=== PATIENT | female | born 1950 | race Caucasian/White ===

== ENCOUNTER 2021-07-19 06:55 | Day surgery (SDC) | payer MEDICARE, SELFPAY ==
[2021-05-16 08:07] VITALS: BP 112/58; BMI 29.6
[2021-07-14 10:40] VITALS: BMI 29.5
--- NOTE | 2021-07-18 08:08 | HO.ANESPROP2 ---
Documented by User: Destini Humphrey NP 07/18/21 11:44 HPI - Anesthesia Eval Consult details Narrative: 71yo F for Colonoscopy with antibiotics plavix/asa s/p AVR 01/2021 PMFSH Active Problems Active Problems: All Active Problems (Updated 07/14/21 @ 10:34 by Elizabet Adams RN) Upper respiratory tract infection (Acute) Past Medical History Medical History (Updated 07/14/21 @ 10:34 by Elizabet Adams RN) Aortic valve stenosis Diabetes Endometrial cancer HTN (hypertension) Hypothyroid Surgical History Surgical History (Updated 07/14/21 @ 10:34 by Elizabet Adams RN) H/O colonoscopy History of History of total abdominal hysterectomy Hx of aortic valve replacement Hx of hand surgery Social History Social History Patient Tobacco Use Status: Never used Tobacco Advance Directives: No Advance Directives Information Provided: Yes Advance Directives on File: No Meds Allergies Allergy/AdvReac Type Severity Reaction Status Date / Time Seasonal Allergies Allergy Intermediate hayfever Verified 07/14/21 10:39 symptoms Sulfa (Sulfonamide Allergy Unknown Unknown Verified 07/19/21 07:29 Antibiotics) [SULFA (SULFONAMIDE ANTIBIOTICS)] Home Medications Medication Instructions Recorded Confirmed Last Taken Type aspirin 81 mg tablet,delayed 81 mg PO DAILY 07/14/21 07/14/21 Unknown History release atorvastatin 40 mg tablet 1 tab PO DAILY 07/14/21 07/14/21 Unknown History clopidogrel 75 mg tablet 1 tab PO DAILY 07/14/21 07/14/21 07/15/21 History fexofenadine 180 mg tablet 180 mg PO DAILY 07/14/21 07/14/21 Unknown History levothyroxine 75 mcg tablet 75 mcg PO DAILY 07/14/21 07/19/21 07/19/21 History Exam Exam Date and Time: July 18, 2021 0808 Height,Weight and Vital Signs: Height 5 ft 4 in Weight 78.018 kg Narrative Narrative: EKG 03/2021 NSR @65, nonspecific ST-T wave abnormalities ECHO 03/2021 LV normal in size Mild basal septal hypertrophy LV wall thickness is mildly increased LVEF 65-75% No RWMA Grade 2 DD with elevated LA pressure Bioprosthetic valve well seated in aortic position. No central valvular leak. No perivalvular leak. Peak velocity and mean gradient milding elevated in setting of increased stroke-volume. No evidence of significant prostheitc aortic stenosis Mild to mod mitral annular calc Mitral valve leaflets appear mild to moderately calcified. No significant mitral stenosis or regurg Trace circumferential pericardial effusion Pre-TAVR cath showed mild disease Assessment and Plan Assessment Anesthesia Assessment: Chart Reviewed Documented by User: Darby Lucas MD 07/19/21 08:29 [facility] Past Medical History Medical History (Updated 07/14/21 @ 10:34 by Elizabet Adams RN) Aortic valve stenosis Diabetes Endometrial cancer HTN (hypertension) Hypothyroid Family History Family history of problems with anesthesia: No Surgical History Surgical History (Updated 07/14/21 @ 10:34 by Elizabet Adams RN) H/O colonoscopy History of History of total abdominal hysterectomy Hx of aortic valve replacement Hx of hand surgery History of Problems with Anesthesia: No Social History Social History Patient Tobacco Use Status: Never used Tobacco Advance Directives: No Advance Directives Information Provided: Yes Advance Directives on File: No Meds Allergies Allergy/AdvReac Type Severity Reaction Status Date / Time Seasonal Allergies Allergy Intermediate hayfever Verified 07/14/21 10:39 symptoms Sulfa (Sulfonamide Allergy Unknown Unknown Verified 07/19/21 07:29 Antibiotics) [SULFA (SULFONAMIDE ANTIBIOTICS)] Home Medications Medication Instructions Recorded Confirmed Last Taken Type aspirin 81 mg tablet,delayed 81 mg PO DAILY 07/14/21 07/14/21 Unknown History release atorvastatin 40 mg tablet 1 tab PO DAILY 07/14/21 07/14/21 Unknown History clopidogrel 75 mg tablet 1 tab PO DAILY 07/14/21 07/14/21 07/15/21 History fexofenadine 180 mg tablet 180 mg PO DAILY 07/14/21 07/14/21 Unknown History levothyroxine 75 mcg tablet 75 mcg PO DAILY 07/14/21 07/19/21 07/19/21 History Exam Airway Mallampati Class: II (Couple caps) TM Dist: >3cm Neck ROM: Full Heart: rrr Lungs: cta Assessment and Plan Assessment Anesthesia Assessment: Anesthesia Plan Discussed and Chart Reviewed Final Anesthetic Review Family History of Problems with Anesthesia: No History of Problems with Anesthesia: No NPO: Yes ASA Class: II Final Preanesthetic Review: No Changes in Pt Med Stat, Meds/Allgs Chart Reviewed and Consent Obtained/Reviewed Patient Risk: Intermediate Procedure Risk: Intermediate Anesthetic Plan Anesthetic Plan: MAC: Disposition: Standard PACU
[2021-07-19 07:15] VITALS: BP 164/78; PULSE 89; RESP 18; TEMP 36.2; O2SAT 96
[2021-07-19] MEDS: Ampicillin Sodium 2 GM in 0.9 % Sodium Chloride 100 ML IV (07:36)
[2021-07-19] MEDS: Lactated Ringers 1,000 ML 100 ML IVCONT (07:36)
[2021-07-19] MEDS: Gentamicin Sulfate/NaCl 80 MG/100 ML PIGGYBACK 100 MG IV (07:54)
[2021-07-19 09:20] VITALS: BP 102/47; PULSE 77; RESP 16; TEMP 36.2; O2SAT 96
--- NOTE | 2021-07-19 09:24 | P.BOP_ITS ---
Brief Operative Note Date of Service: 07/19/21 Pre-op diagnosis: Screening Post-op diagnosis: other (Diverticulosis) Procedure: Colonoscopy to the cecum and TI Surgeon: Jorge Rose Anesthesia: MAC Was an Account Manager Trainee used for this Procedure?: No Estimated blood loss (mL): 0 Pathology: none sent Condition: stable Disposition: PACU
[2021-07-19 09:35] VITALS: BP 115/51; PULSE 78; RESP 16; TEMP 36.2; O2SAT 97
--- NOTE | 2021-07-19 10:45 | OP_ITS ---
SURGEON: Jorge Rose MD INDICATIONS: The patient presents for evaluation of personal history of tubular adenoma of the colon, family history of colon cancer, and colorectal cancer screening. Full consent was obtained from her for the procedure, including risks of bleeding and perforation. PREOPERATIVE DIAGNOSIS: POSTOPERATIVE DIAGNOSIS: PROCEDURE PERFORMED: ESTIMATED BLOOD LOSS: COMPLICATIONS: ANESTHESIA: Monitored anesthesia care. ASSISTANTS: SPECIMENS: PROCEDURE: Colonoscopy to the cecum and terminal ileum. PREOPERATIVE DIAGNOSES: Personal history of tubular adenoma of the colon, family history of colon cancer, colorectal cancer screening. POSTOPERATIVE DIAGNOSES: Personal history of tubular adenoma of the colon, family history of colon cancer, colorectal cancer screening, mild diverticulosis, internal hemorrhoids. DESCRIPTION OF PROCEDURE: The patient was placed in the left lateral decubitus position. The digital rectal exam revealed no abnormalities. The Olympus video pediatric colonoscope was entered into the rectum and advanced easily to the cecum. Once in the cecum, I did identify normal-appearing cecal pouch with appendiceal orifice and normal-appearing ileocecal valve. The terminal ileum was cannulated and appeared normal. Scope was withdrawn back in the colon. The entire cecum and ileocecal valve appeared normal. The scope was slowly withdrawn assessing all mucosal surfaces carefully. Preparation was excellent. I did not visualize any sign of polyps, colitis, nor angiodysplasia. There was a mild amount of sigmoid diverticulosis. In the rectum, scope was retroflexed visualizing internal hemorrhoids, but no other pathology. The rectal mucosa appeared normal. The scope was straightened and withdrawn from the patient. She tolerated the procedure well and was returned to the recovery area in stable condition. IMPRESSION: 1. Diverticulosis. 2. Internal hemorrhoids. PLAN: Given her family history and previous history of tubular adenoma, I would recommend a followup colonoscopy in 5 years. She will otherwise see me on a p.r.n. basis. She was advised to resume her aspirin and clopidogrel today. She did receive preprocedure antibiotics and was given a prescription for amoxicillin to take later today in regard to her previous aortic valve replacement. MD JACY Figueroa/CHARLY / [id number]
== END 2021-07-19 10:09 | disposition home or self-care (01) ==
PROVIDERS: PCP Internal Medicine; Visit Provider Internal Medicine
PROC: 0DJD8ZZ Inspection of Lower Intestinal Tract, Via Natural or Artificial Opening Endoscopic (ICD-10-PCS; CPT 45378; principal; 2021-07-19 08:20)
DX: Z12.11 Encounter for screening for malignant neoplasm of colon (principal); Z86.010 Personal history of colon polyps; Z80.0 Family history of malignant neoplasm of digestive organs; K57.30 Diverticulosis of large intestine without perforation or abscess without bleeding; K64.8 Other hemorrhoids; Z95.2 Presence of prosthetic heart valve; E11.9 Type 2 diabetes mellitus without complications; I10 Essential (primary) hypertension; E03.9 Hypothyroidism, unspecified; Z79.01 Long term (current) use of anticoagulants; Z79.82 Long term (current) use of aspirin; Z85.42 Personal history of malignant neoplasm of other parts of uterus
CPT/HCPCS: G0105; J0290; J1580

== ENCOUNTER 2025-04-28 16:59 | Emergency (ER) | payer MEDICARE, SELFPAY ==
[2021-08-03 08:21] VITALS: BP 128/64; BP 138/70; BMI 30.6
--- OUTSIDE RECORDS SUMMARY | 2025-04-24 13:20 | XMS_ITS | Encounter Summary ---
Author Organization [facility] Address [address] [place] [address] Phone Care Team Providers Care Flight Attendant Name Role Phone Erwin Simon MD Primary Care Provider [phone] Reason for Visit * Reason Comments Back Pain LBP radiating down h er left buttocks to her toes x 3 days. No trauma. Encounter Details Date Type Department Care Team (Late st Contact Info) Description 04/24/2025 1:20 PM EST Office Visit [facility] at [address] [address] Rufina Collado, MICHAELLE [address] [place] [id number] [email or web address] Acute left-sided low back pain with left-sided sciatica (Primary Dx); Primary hypertension Social History Tobacco Use Types Packs/Day Years Used Date Smoking Tobacco: Never Smokeless Tobacco: Never Tobacco Cessation:Counseling Given: Not Answered Education Answer Date Recorded Are you interested in more education? Not on jaycee e 08/25/2022 Are you concerned about learning? Not on file 08/25/2022 No 08/25/2022 No 08/25/2022 Digital Access Answer Date Recorded No 09/23/2022 No 09/23/2022 Reliable internet access at home? Not on file 09/23/2022 Device with a working camera? Not on file Comments No Sex and Gender Information Value Date Recorded Sex Assigned at Not on file Legal Sex Female 8:48 AM EDT Gender Identity Not on file Sexual Orientation Not on file documented as of this encounter Last Filed Vital Signs Vital Sign Reading Time Taken Comments Blood Pressure 156/68 04/24/2025 1:58 PM EST Pulse 74 04/24/2025 1:31 PM EST Temperature 36.6 C (97.8 F) 04/24/2025 1:31 PM EST Respiratory Rate 16 04/24/2025 1:31 PM EST Oxygen Saturation 98% 04/24/2025 1:31 PM EST Inhaled Oxygen Concentration - - Weight 73.5 kg (162 lb) 04/24/2025 1:31 PM EST Height - - Body Mass Index 28.7 08/04/2021 9:11 AM EDT documented in this encounter Patient Instructions * Patient Instructions* Rufina Collado PA-C - 04/24/2025 1:20 PM EST Take the Medrol pills as early in the day as possible. Take all the pills for the day at once. Do not take ibuprofen or naproxen with these, but you can take acetaminophen 1000mg up to 4 times a day for the pain. Take the muscle relaxer as prescribed. Do not mix with alcohol or drive while taking this as it maymake your drowsy. Rest the back. Apply heat to the back for 20 minutes 3-4 x a day. Gentle stretching. Use over the counter pain patches with lidocaine( don't apply heat directly over). Contact your PCP for an appointment as you may need a referral to PT. Go to the ER for development of urinary or bowel incontinence, numbness in the groin area or loss of control of a foot or leg. Please follow up with your PCP to discuss blood pressure * Attachments The following attachments cannot be sent through Care Everywhere. * Sciatica ([place]) documented in this encounter Progress Notes * Rufina Collado PA-C - 04/24/2025 1:20 PM EST Images from the original note were not included. Subjective: Patient ID: Meghana Amato is a 74 y.o. female. 74-year-old female here with lower left back pain for the past 4 days radiating down into her buttocks and her left leg. She has not had any numbness, tingling in her leg, no numbness in her buttocksand no change to bowel or bladder. She has tried acetaminophen, ibuprofen, heating pad, IcyHot and nothing has helped. Back Pain Pertinent negatives include no chest pain, fever, numbness or weakness. Review of Systems Constitutional: Negative for chills and fever. Cardiovascular: Negative for chest pain. Neurological: Negative for weakness and numbness. Hematological: Does not bruise/bleed easily. Musculoskeletal: Positive for back pain. Negative for myalgias. Vitals: 04/24/25 1331 04/24/25 1358 BP: (!) 168/83 (!) 156/68 BP Location: Left arm Left arm Patient Position: Sitting Sitting Cuff Size: Medium Large Pulse: 74 Resp: 16 Temp: 36.6 ??C (97.8 ??F) TempSrc: Temporal SpO2: 98% Weight: 73.5 kg (162 lb) Objective: Physical Exam Constitutional: General: She is not in acute distress. Musculoskeletal: Lumbar back: Spasms and tenderness (L sciatic notch) present. No swelling, deformity, signs of trauma, lacerations or bony tenderness. Normal range of motion. Positive left straight leg raise test. Negative right straight leg raise test. Neurological: Mental Status: She is alert. No results found for this visit on 04/24/25. Procedure: Procedures Assessment/Plan: Diagnosis Plan 1. Acute left-sided low back pain with left-sided sciatica 2. Primary hypertension Assessment and Plan: No red flag symptoms currently. Positive straight leg raise on L consistent with sciatica Discussedsymptomatic care, steroids with side effects and warnings, and muscle relaxer prescribed. DiscussedER precautions. Aware her BP is high, likely due to pain at this time. Will f/u with PCP documented in this encounter Plan of Treatment Not on file documented as of this encounter Visit Diagnoses Diagnosis Acute left-sided low back pain with left-sided sciatica- Primary Primary hypertension Unspecified essential hypertension documented in this encounter Care Teams Flight Attendant Relationship Specialty Start Date End Date Erwin Simon MD [address] [place] [id number] PCP - General Internal Medicine 08/04/21 documented as of this encounter Additional Source Comments The information contained in this document represents components of the legal health record. It is not the complete legal health record.[facility]
--- NOTE | ~2025-04-28 | CT_ITS ---
CLINICAL HISTORY: L sided pain, currently tx for breast CA Exam: Unenhanced CT lumbar spine with multiplanar reformats. Comparison: None. Findings: Osseous structures: There is mild 5 mm grade 1 anterolisthesis L4 on L5. Remaining vertebral body heights and alignment are maintained. No destructive osseous lesions. Diffuse moderate vertebral body spurring and mild disc space narrowing is more significant L1-L4, findings compatible with diffuse degenerative disc disease. Bilateral facet arthropathy is more significant L4-S1. Soft tissues: Disc bulging at L3-4 (4; 226) may result in very mild central canal stenoses. Anterolisthesis with disc bulging and facet arthropathy as well as ligamentum flavum hypertrophy at L4-5 result in likely at least moderate central canal stenoses (4; 287). No other significant compromise of the thecal sac or spinal canal. Visualized visceral structures reveal no acute abnormalities. Impression: 1. Lumbar degenerative changes, most significant at L4-5 level as described above. This document has been electronically signed by: Lincoln Dennison MD on 04/28/2025 19:22:25
[2025-04-28 17:04] VITALS: BP 205/88; PULSE 68; RESP 18; TEMP 36.6; O2SAT 98; BMI 29.2
--- NOTE | 2025-04-28 17:06 | ED_ITS ---
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 She denies fall or other trauma. Reports pain began around 5 days ago. She was seen at urgent care and started on prednisone and a muscle relaxer. Reports that the only relief was the 1st day that she took the high dose of prednisone (60 mg). Denies any additional pain relief since. Reports that she feels her left leg is weaker than the right. Denies any saddle anesthesia or bowel or bladder incontinence. Denies fevers. MD elicited complaint: back pain Related Data Home Medications ?Medication ?Instructions ?Recorded ?Confirmed aspirin 81 mg tablet,delayed 81 mg PO DAILY 07/14/21 0 07/14/21 release atorvastatin 40 mg tablet 1 tab PO DAILY 07/14/2106/27 clopidogrel 75 mg tablet 1 tab PO DAILY 07/14/2106/27 fexofenadine 180 mg tablet 180 mg PO DAILY 07/14/21 levothyroxine 75 mcg tablet 75 mcg PO DAILY 07/14/21 0 07/19/21 Previous Rx's ?Medication ?Instructions ?Recorded azithromycin 250 mg tablet See Rx Instructions PO .COM PLEX #6 01/20/21 (Zithromax) tabs diazepam 5 mg tablet (Valium) 5 mg PO BID PRN muscle s pasm #10 04/28/25 tabs gabapentin 300 mg capsule 300 mg PO TID #30 caps 04/28 prednisone 20 mg tablet 60 mg (3 x 20 mg) PO DAILY 5 days 04/28/25 #15 tabs Allergies Allergy/AdvReac Type Severity Reaction Status Date / Time Seasonal Allergies Allergy Intermediate hayfever Verified 04/28/25 17:08 symptoms Sulfa (Sulfonamide Allergy Unknown Unknown Verified 04/28/25 17:08 Antibiotics) (SULFA (SULFONAMIDE ANTIBIOTICS)) Review of Systems Review of Systems: as per hpi Yes all other systems are reviewed and are negative Constitutional: Constitutional: Reports as per HPI [facility] Past Medical History Medical History (Updated 04/28/25 @ 20:50 by Melissa Knapp NP) Aortic valve stenosis Endometrial cancer Hypothyroid Diabetes HTN (hypertension) Surgical History (Updated 07/14/21 @ 10:34 by Elizabet Adams RN) Hx of hand surgery History of History of total abdominal hysterectomy H/O colonoscopy Hx of aortic valve replacement Social History Social History Patient Tobacco Use Status: Never used Tobacco Smoked in Last 30 Days: No Use of substances other than those prescribed or required for medical reasons: No Advance Directives: Yes Advance Directives Information Provided: No Advance Directives on File: No Physical Exam Vital Signs: Vital Signs: Last Vital Signs Temp 97.4 F 04/28/25 23:00 Pulse 77 04/28/25 23:00 Resp 16 04/28/25 23:00 BP 229/94 H 04/28/25 23:00 Pulse Ox 97 04/28/25 23:00 O2 Del Method Room Air 04/28/25 23:00 BMI result Body Mass Index 29.2 Vital signs have been reviewed and appear to be correct. Blood pressure hypertensive. Heart rate normal. Respiratory rate normal. Temperature normal. Oxygen saturation normal. Const: General: cooperative, healthy appearing and no acute distress Orientation/consciousness: oriented to person, oriented to place, oriented to time and patient oriented x3 Limitations: no limitations HEENT: Head: Yes normocephalic and Yes atraumatic Ears: external ears normal General nose exam: Normal external nose present Face and sinus: Yes face symmetric Mouth: oropharynx normal and moist mucous membranes Throat: Yes uvula midline Eyes: Pupils: Equal, round and reactive pupils present Neck: Neck: Yes normal visual inspection, Yes no meningeal signs and Yes supple Resp: Effort & Inspection: normal respiratory effort and able to speak in complete sentences Auscultation: clear to auscultation bilaterally Cardio: Rate: regular rate Rhythm: regular rhythm Heart sounds: S1 normal heart sound present and S2 normal heart sound present GI: Palpation (GI): Soft to palpation and nontender Auscultation: normoactive bowel sounds : General: Yes no CVA tenderness Back/Spine/Pelvis: Back: no CVA tenderness Thoracic/Lumbar Spine: thoracic and lumbar spine normal to inspection, thoraco-lumbar ROM normal, straight leg raise negative bilaterally, pain with thoraco-lumbar ROM, No thoracic spinal tenderness and lumbar spinal tenderness at L4 and at L5 Skin: General skin exam: elasticity normal and turgor normal Neuro: General: oriented to person, oriented to place, oriented to time, patient oriented x3, gait normal, tone normal, moves all extremities, Normal light touch and pain sensation, no meningeal signs, no focal motor deficits, CN's II-XI intact bilaterally and deep tendon reflexes 2+ bilaterally Cranial nerves: Yes Equal, round and reactive pupils present Cognition (Neuro): normal cognition Motor exam (neuro): 5/5 motor strength present throughout, Normal motor muscle tone present throughout and Motor abnormalities not present Sensory Exam: Normal double simultaneous stimulation for sensation Extrem: General: Yes full ROM, Yes no pedal edema and Yes no calf tenderness Psych: Mental Status: mental status grossly normal Affect: normal affect Thought process: Normal thought process present Course Course Course Narrative: This is a Rapid Medical Exam performed in triage by Amalia Euceda PA-C. Full HPI, ROS and PE to be performed by primary ED provider. 74 yo F w/pmhx DM, hypothyroid, HTN, presenting to the ED c/o L sided low back pain/buttock pain radiating down left lower extremity x5 days. Has been taking muscle relaxer and prednisone from urgent Care without relief. Denies known injury, trauma, fall, numbness/tingling. Reports associated weakness. Denies urinary symptoms PE: HTNsive, no midline spinous ttp, no visible rash to whats seen in triage. Plan: Pain control - full eval Reevaluation(s) Reevaluation #1: 11:25 PM 04/28/2025 (Paulina ALEXANDRE): The patient was signed out to this provider at shift change. The patient is a 74-year-old female who presents to the ED for evaluation of left-sided low back pain radiating to the left leg for the past 5 days without associated trauma. The patient was treated with Medrol Dosepak and muscle relaxers at a urgent care visit 5 days ago when the pain began. Patient reports medications initially helped but only for 1 day and then symptoms returned and did not respond similarly to the above-mentioned medications. The patient reports she has also been attempting Tylenol regularly, and OTC lidocai ne patches without effect. The patient is unable to take any NSAIDs due to anticoagulation for aortic heart valve replacement. The patient wishes to avoid any narcotic medications. The patient has had no associated systemic illness. Per sign-out there are no symptoms or concern for cauda equina. Patient was sent for CT of the lumbar spine to evaluate for pathologic fracture due to a history of ductal carcinoma. The patient's CT shows no evidence of fracture or other acute pathology, there is significant degenerative disc disease specifically of L4 through L5. The patient was treated with Solu-Medrol and Valium, and signed out to this provider pending re-evaluation. Upon initial reassessment the patient reported no significant improvement in symptoms. Patient was treated additionally with gabapentin. Upon repeat evaluation the patient reports some moderate improvement in symptoms. The patient will be discharged with a course of gabapentin, Valium, and prednisone. Patient has been educated on need for outpatient follow up with PCP for physical therapy and consideration of higher level pain control such as spinal injections. After discussion with the patient and her , the patient's prescriptions will be sent to [facility] in [place] as the patient's pharmacy is likely to be closed tomorrow due to the new 's holiday. Of note the patient's blood pre ssure has been elevated since arrival in the ED, patient does have a history of hypertension and takes her medications in the morning, denies any recent missed doses or changes to her medication. Patient's pain may be exacerbating hypertension, however patient is currently having no chest pain, headache, focal neurological deficit or other symptoms concerning for hypertensive crisis. Patient educated to take her medication in the morning and monitor blood pressure, instructed to return with any headache, chest pain, vision changes, or other concerning symptoms. Medications Administered Discontinued Medications Generic Name Dose Route Start Last Admin Trade Name Lukeq PRN Reason Stop Dose Admin Diazepam 2 mg 04/28/25 20:15 04/28/25 21:08 Diazepam 2 Mg Tablet PO 04/28/25 20:16 2 mg ONCE ONE Administration Gabapentin 300 mg 04/28/25 22:05 04/28/25 22:31 Gabapentin 300 Mg Capsule PO 04/28/25 22:06 300 mg ONCE ONE Administration Methylprednisolone Sodium Succinate 60 mg 04/28/25 20:15 12/31/25 21:08 Methylprednisolone Sod Succ 125 Mg/2 Ml Vial IM 04/28/25 20:16 60 mg ONCE ONE Administration Morphine Sulfate 4 mg 04/28/25 18:43 04/28/25 19:17 Morphine Sulfate 4 Mg/Ml Cartridge IM 04/28/25 18:44 4 mg ONCE ONE Administration Protocol Medical Decision Making Medical Decision Making [facility] Narrative: Patient is a 74-year-old female with past medical history of invasive ductal carcinoma of right breast currently on anastrozole, 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 On exam patient is awake, A+Ox3, VS WNL, afebrile, normal neurological exam without focal deficits, physical exam findings as above. Given reported symptoms and physical exam findings, initial differential includes but is not limited to initial differential includes lumbar radiculopathy, lumbar strain, degenerative disc disease, disc herniation, spinal stenosis, spondylosis. Given breast and history of endometrial cancer, concern for malignancy/mass. Unlikely SEA, cauda equina/cord compression. CT lumbar spine notable for . My interpretation is in agreement with the radiologist's interpretation. Patient medicated with IM morphine and denies any relief of pain for this, also requesting no additional doses of morphine. Will try IM Solu-Medrol and p.o. Valium next. Patient signed out to BALDOMERO Daugherty pending reassessment after solu-medrol and valium. Differential Diagnosis Differential Diagnoses: The differential diagnosis associated with the presentation includes as per [facility] Admission/Observation Consideration of admission/observation: Escalation of care including admission/observation considered Independent Interpretation I performed an independent interpretation of an: CT Scan Interpretation: CT lumbar spine notable for degenerative changes, primarily at L4-L5. Radiology Impression Discussion of test interpretation with radiology: I have reviewed the radiologist's reading. Radiologist Impression: Exam: Unenhanced CT lumbar spine with multiplanar reformats. Comparison: None. Findings: Osseous structures: There is mild 5 mm grade 1 anterolisthesis L4 on L5. Remaining vertebral body heights and alignment are maintained. No destructive osseous lesions. Diffuse moderate vertebral body spurring and mild disc space narrowing is more significant L1-L4, findings compatible with diffuse degenerative disc disease. Bilateral facet arthropathy is more significant L4-S1. Soft tissues: Disc bulging at L3-4 (4; 226) may result in very mild central canal stenoses. Anterolisthesis with disc bulging and facet arthropathy as well as ligamentum flavum hypertrophy at L4-5 result in likely at least moderate central canal stenoses (4; 287). No other significant compromise of the thecal sac or spinal canal. Visualized visceral structures reveal no acute abnormalities. Impression: 1. Lumbar degenerative changes, most significant at L4-5 level as described above. External Record Review External record reviewed: Inpatient record, Office record and Outpatient record Discharge Plan Discharge Clinical Impression: Lumbar radiculopathy Patient Disposition: Home, Self-Care Instructions: Lumbar Radiculopathy (ED) Additional Instructions: Your Diagnosis You have been diagnosed with lumbar radiculopathy, a condition where a nerve in your lower back is irritated or compressed. This causes pain that may radiate do wn your leg, along with possible numbness, tingling, or weakness. The good news is that most people with this condition improve over time with conservative treatment. What to Expect Most patients with lumbar radiculopathy see improvement within 6 weeks. About one-third of patients notice improvement within 2 weeks, and this percentage increases significantly with time. Your symptoms should gradually decrease as the nerve irritation resolves. Activity Guidelines Stay Active: It is important to avoid bed rest and continue with your normal activities as much as possible. Bed rest does not speed recovery and may actually slow it down. Continue with usual activities, including work, as tolerated. Modify Activities: If certain activities significantly increase your symptoms, you may need to temporarily modify them. This might include: * Avoiding heavy lifting * Avoiding prolonged sitting or standing in one position * Adjusting your workstation if needed * Taking breaks to change positions before experiencing excessive stiffness Exercise: Begin a progressive walking program as soon as possible. Aim to gradually increase your walking time or distance. Your healthcare provider may also recommend specific stretching and strengthening exercises tailored to your condition. Pain Management Medications: Take all medications as prescribed according to directions provided. Heat Therapy: Applying heat to your lower back may provide some relief. When to Seek Immediate Medical Attention Go to the emergency department or call 911 if you develop any of these warning signs: * Loss of bladder or bowel control?(inability to hold urine or stool) * Numbness in the groin or buttocks area?(saddle anesthesia) * Severe or rapidly worsening leg weakness?(difficulty walking or standing) * New inability to urinate * Fever with back pain * Severe pain that is not controlled with medication Follow-Up Care * Schedule a follow-up appointment with your primary healthcare provider * If your symptoms do not improve within 6 weeks, or if they worsen, contact your primary healthcare provider * Physical therapy may be recommended if your recovery is slow or if you have risk factors for persistent pain Additional Tips * Maintain a positive outlook?remember that most people recover without surgery * Avoid smoking, as it is associated with worse back pain outcomes * Gradually return to your normal activities as your symptoms improve * Do not be alarmed by modest increases in pain with activity?this does not mean you are causing damage Prescriptions: New prednisone 20 mg tablet 60 mg PO DAILY 5 Days Qty: 15 0RF diazepam [Valium] 5 mg tablet 5 mg PO BID PRN (Reason: muscle spasm) Qty: 10 0RF gabapentin 300 mg capsule 300 mg PO TID Qty: 30 0RF No Action atorvastatin 40 mg tablet 1 tab PO DAILY clopidogrel 75 mg tablet 1 tab PO DAILY fexofenadine 180 mg Tablet 180 mg PO DAILY aspirin 81 mg Tablet,Delayed Release (Dr/Ec) 81 mg PO DAILY levothyroxine 75 mcg Tablet 75 mcg PO DAILY azithromycin [Zithromax] 250 mg tablet See Rx Instructions PO .COMPLEX Qty: 6 0RF Rx Instructions: take 500 mg today (day 1), then 250 mg for 4 days (days 2-5) PO Referrals: rEwin Simon MD [Primary Care Provider, Internal Medicine] Clinical Impression: Lumbar radiculopathy Print Language: Sammarinese
--- OUTSIDE RECORDS SUMMARY | 2025-04-28 18:17 | XMS_ITS | Encounter Summary ---
Author Organization [facility] Address [address] [place] [id number] Phone Care Team Providers Care Site Project Manager Name Role Phone Erwin Simon MD Primary Care Provider [phone]- [phone] Reason for Visit * Reason Comments Med Change Request Encounter Details Date Type Department Care Team (Late st Contact Info) Description 04/24/2025 Refill [facility] Urgent Care at [address] [address] Rufina Collado PA-C [address] [place] [address] [phone] [email or web address] Med Change Request Social History Tobacco Use Types Packs/Day Years Used Date Smoking Tobacco: Never Smokeless Tobacco: Never Education Answer Date Recorded Are you interested [...] on file documented as of this encounter Plan of Treatment Not on file documented as of this encounter Visit Diagnoses Not on filedocumented in this encounter Care Teams Site Project Manager Relationship Specialty Start Date End Date Erwin Simon MD [address], [place] [id number] (work) PCP - General Internal Medicine 08/04/21 documented as of this encounter Additional Source Comments The information contained in this document represents components of the legal health record. It is not the complete legal health record.[facility]
--- OUTSIDE RECORDS SUMMARY | 2025-04-28 18:17 | XMS_ITS | Clinical Summary ---
Author Organization [facility] Address [address] [place] [address] Phone Care Team Providers Care Information Systems Security Officer Name Role Phone Erwin Simon MD Primary Care Provider [phone]- [phone] Allergies Active Allergy Reactions Criticality Noted Date Comments Alendronate GI Upset 08/04/2021 Risedronate Joint Pain Low 08/04/2021 Sulfamethoxazole Rash Low 08/04/2021 Medications atorvastatin (LIPITOR) 40 MG tablet 07/21/19 22 Active clopidogrel (PLAVIX) 75 mg tablet 06/07/19 22 Active quinapriL (ACCUPRIL) 40 MG tablet 07/21/19 22 Active levothyroxine (SYNTHROID, LEVOTHROID) 75 MCG tablet Take 75 mcg by mouth. 03/14/20 21 Active fexofenadine (SYDNEY) 180 MG tablet Take 180 mg by mouth. 02/21/20 21 Active amoxicillin (AMOXIL) 500 MG capsule Only when pt needs dental work done 07/20/19 22 Active aspirin 81 MG EC tablet Take 81 mg by mouth. Active blood sugar diagnostic Strp strips See Instruction s, # 1 each, Maintenance , use to check glucose once daily for dx diabetes mellitus type 2 (E11.9), 03/24/24 8:15:00 AM EST, Supply, 159.7, cm, 03/23/24 13:12:00 EST, Height, 77.6, kg, 12/11/23 12:54:00 EDT, Dry Weight 03/24/20 24 Active dzttwbsv-wgn-wygh- FA-vit K-lut (CENTRUM SILVER WOMEN) 8 mg iron-400 mcg-50 mcg Tab as directed Orally Active lutein 6 mg Tab Lutein Acti ve vitamin C-biotin 50 mg -1,250 mcg Chew Vitamin B 12 Active metFORMIN (GLUCOPHAGE-XR) 500 MG 24 hr tablet Take 1 tablet by mouth. 03/03/20 25 Active ascorbic acid, vitamin C, (ASCORBIC ACID) 250 mg Chew Vitamin C Active amLODIPine (NORVASC) 5 MG tablet Take 1 tablet by mouth. 11/20/19 25 Active anastrozole (ARIMIDEX) 1 mg tablet Take 1 tablet by mouth. 11/19/19 25 Active vitamin D3-vitamin K2 25 mcg (1,000 unit)-90 mcg ODT disintegrating tablet Vitamin D3 Active lisinopril (PRINIVIL,ZESTRIL) 40 MG tablet Take 1 tablet by mouth. 01/07/20 25 Active b complex vitamins capsule Take 1 capsule by mouth daily. Active tiZANidine (ZANAFLEX) 4 MG tablet Take 1 tablet (4 mg total) by mouth every 6 (six) hours as needed (for muscle spasm - will make you drowsy). 16 tablet 04/24/20 25 025 Active methylPREDNISolone (MEDROL DOSEPACK) 4 mg tablet TAKE ALL THE PILLS FOR THE DAY EARLY IN THE MORNING POSSIBLE. 21 tablet 04/24/20 25 Active methylPREDNISolone (MEDROL DOSEPACK) 4 mg tablet Take all the pills for the day as early in the morning as possible. 21 tablet 04/24/20 25 025 Discontinued Active Problems No known active problems Encounters Date Type Department Care Team Description 04/24/2025 1:20 PM EST Office Visit [facility] Ur[facility] Care at [address] [address] Rufina Collado PA-C Acute left-sided low back pain with left-sided sciatica (Primary Dx); Primary hypertension 04/24/[address] [facility] at [address] [address] Rufina Collado PA-C Med Change Request from Last 3 Months Social History Tobacco Use Types Packs/Day Years [...] on file Sexual Orientation Not on file Last Filed Vital Signs Vital Sign Reading Time Taken Comments Blood Pressure 156/68 04/24/2025 1:58 PM EST Pulse 74 04/24/2025 1:31 PM EST Temperature 36.6 C (97.8 F) 04/24/2025 1:31 PM EST Respiratory Rate 16 04/24/2025 1:31 PM EST Oxygen Saturation 98% 04/24/2025 1:31 PM EST Inhaled Oxygen Concentration - - Weight 73.5 kg (162 lb) 04/24/2025 1:31 PM EST Height 160 cm (5' 3 ) 08/04/2021 9:11 AM EDT Body Mass Index 28.7 08/04/2021 9:11 AM EDT Plan of Treatment Health Maintenance Due Date Last Done Comments CREATININE LEVEL 1949 LIPID PANEL 1949 POTASSIUM LEVEL 1949 TSH LEVEL 1949 DEPRESSION SCREENING 1961 HEPATITIS C SCREENING 07/14/1967 COLOGUARD 1994 COLONOSCOPY 1994 COLORECTAL CANCER SCREENING 1994 FIT TEST 1994 FOBT 1994 SIGMOIDOSCOPY 1994 VIRTUAL COLONOSCOPY 1994 OSTEOPOROSIS SCREENING INITIAL (ONE-TIME) 2014 PNEUMOCOCCAL VACCINES (50+ years) (2 of 2 - PCV) 10/09/2015 10/08/2014 ZOSTER VACCINES (3 of 3) 05/21/2018 03/26/2018, 07/28 Adult Td,Tdap Booster 10/05/2019 10/04/2009 RSV VACCINE (1 - 1-dose 75+ series) 2024 COVID-19 VACCINE ( season) 2024 03/09/2024, 03/04/2023, 05/22/2022, Additional history exists INFLUENZA VACCINE Completed 02/04/2025, , 01/07/2023, Additional history exists SMOKING STATUS SCREENING (Once After 26 Yrs) Completed 04/24/2025 HEPATITIS A VACCINES Aged Out No long er eligible based on patient's age to complete this topic HIB VACCINES Aged Out No longer eligi ble based on patient's age to complete this topic MENINGOCOCCAL VACCINES (ACWY) Aged Out No longer eligible based on patient's age to complete this topic MENINGOCOCCAL VACCINES (B) Aged Out N o longer eligible based on patient's age to complete this topic Medical Devices Not on file Insurance MEDICARE PART A & B [facility] MEDEX SUPPLEMENT MEDICARE PART A & B [employer] MEDEX SUPPLEMENT MEDICARE PART A & B [employer] MEDEX SUPPLEMENT MEDICARE PART A & B [employer] MEDEX SUPPLEMENT MEDICARE PART A & B [employer] MEDEX SUPPLEMENT MEDICARE PART A & B [employer] MEDEX SUPPLEMENT MEDICARE PART A & B [employer] MEDEX SUPPLEMENT MEDICARE PART A & B [employer] MEDEX SUPPLEMENT MEDICARE PART A & B [employer] MEDEX SUPPLEMENT Care Teams Information Systems Security Officer Relationship Specialty Start Date End Date Erwin Simon MD [address] [place] [phone] PCP - General Internal Medicine 08/04/21 Additional Source Comments The information contained in this document represents components of the legal health record. It is not the complete legal health record.[facility]
--- OUTSIDE RECORDS SUMMARY | 2025-04-28 18:17 | XMS_ITS | Patient Health Record ---
Author Organization [facility] Address [address] [place] [address] Care Team Providers Care Batter Out Name Role Phone Erwin Simon Primary Care Provider Jorge Trammell Unavailable [phone] Allergies Allergen (clinical drug ingredient) Drug/Non Drug Allergy documented on EMR Reaction Allergy Type Onset Date Status Sulfa Unknown Drug Allergy Active Reason For Referral No Information Medications Medication SIG (Take, Route, Frequency, Duration) Notes Start Date End Date Status Clopidogrel Bisulfate 75 MG Tablet Oral; Duration: 90 Active Atorvastatin Calcium 40 MG Tablet 1 tablet Orally Once a day; Duration: 30 day(s) Active Vitamin B 12 Active Vitamin C Active Vitamin D3 Active Neuro Ja Active Levothyroxine Sodium 75 MCG Tablet 1 tablet in the morning on an empty stomach Orally Once a day; Duration: 30 day(s) Active Quinapril HCl 40 MG Tablet 1 tablet Oral ly Once a day Active Thyroid Active Fexofenadine HCl 180 MG Tablet 1 tablet Orally Once a day Active Centrum Silver 50+Women - Tablet as directed Orally Active Lutein Active Aspirin 81 81 MG Tablet Chewable 1 tablet Orally Once a day; Duration: 30 day(s) Active Immunizations Vaccine Route Administration Date Status Comme nts Influenza Unknown 01/11/2021 Administered Social History Social History Additional Details Category Social Info Options Details Miscellaneous: Marital status: Occupation: Retired Section Notes: Nonsmoker; no sig alcohol Nonsmoker; no sig alcohol Problems Problem Type SNOMED Code ICD Code Onset Dates Problem Status W/U Status Risk Notes Problem Screening for malignant neoplasm of colon (089722083) Encounter for screening for malignant neoplasm of colon (Z12.11) Active confirmed Problem History of adenomatous polyp of colon (495730117) History of adenomatous polyp of colon (Z86.010) Active confirmed Problem Long-term current use of anticoagulant (679261940) half-way (current) use of anticoagulants (Z79.01) Active confirmed Problem Screening for malignant neoplasm of rectum (971050599) Encounter for screening for malignant neoplasm of rectum (Z12.12) Active confirmed Problem Preprocedural examination (258242995233678) Preprocedural examination (Z01.818) Active confirmed Problem History of polyp of colon (situation) (678995703) History of colon polyps (Z86.010) Active confirmed Problem Family History of Cancer of Colon (Situation) (458745439) Family history of colon cancer (Z80.0) Active confirmed Problem Pre-procedure evaluation check (254481528) Pre-procedural examination (Z01.818) Active confirmed Problem Diverticulosis of colon (370276989) Diverticulosis of colon (K57.30) Active confirmed Plan Of Treatment Future Test Test Name Order Date COLONOSCOPY 01/10/2016 COLONOSCOPY 06/09/2021 Insurance Providers Payer Name Payer Address Payer Phone Subscriber Number Group Number Insured Name Patient Relationship to Insured Coverage Start Date Coverage End Date MEDICARE OF [place] [address] [facility] [place] [address] [id number] NOEL NOVAK Self - patient is the insured [employer] CLAIMS [address] [place] [address] [id number] NOEL NOVAK Self - patient is the insured Medical (General) History Medical History History ICD Code Colonosocpy 12-10-2005--hyper plastic polyp; negative colonoscopy in 02/2011 except for mild sigmoid diverticulosis and internal hemorrhoids Hypertension Diet-controlled diabetes Denies SC,CVA,Lung disease,renal disease Colonoscopy 02/2016 with a small tubular adenoma removed Endometrial cancer 2017 Aortic valve replaced in 01/2021--TAVR-- [facility] Surgical History Surgery Date(Month/Year) Broken 4th finger right--pins 1 [facility] 2016
[2025-04-28 18:30] VITALS: BP 228/91; PULSE 65; RESP 18; TEMP 36.5; O2SAT 99
--- NOTE | 2025-04-28 18:35 | PC.NURSE ---
patient a&ox3, pt notably hypertensive but complaining of 10/10 low back pain radiating to left ankle, family at bedside, pt awaiting evaluation by provider, plan of care ongoing
[2025-04-28 20:35] VITALS: BP 208/84; PULSE 71; RESP 16; TEMP 36.7; O2SAT 97
[2025-04-28 23:00] VITALS: BP 229/94; PULSE 77; RESP 16; TEMP 36.3; O2SAT 97
--- NOTE | 2025-04-28 23:38 | PC.NURSE ---
Pt aox4, no apparent distress noted. Provider made aware of pts BP. Per provider ok to discharge pt at this time.
[2025-04-28 23:40] VITALS: BP 229/94; PULSE 77; RESP 16; TEMP 36.3; O2SAT 97
== END 2025-04-28 23:40 | disposition home or self-care (01) ==
PROVIDERS: Emergency Provider Student in an Organized Health Care Education/Training Program; PCP Internal Medicine
DX: M54.16 Radiculopathy, lumbar region (principal); I10 Essential (primary) hypertension; E11.9 Type 2 diabetes mellitus without complications; Z85.3 Personal history of malignant neoplasm of breast; Z79.899 Other long term (current) drug therapy
CPT/HCPCS: 72131; 96372; 99284; J2270; J2919